=== PATIENT | male | born 2000 ===

== ENCOUNTER 2021-11-20 21:25 | Emergency (ER) | payer SELFPAY ==
[2021-11-20 23:33] VITALS: BP 134/79
== END 2021-11-21 00:31 | disposition left against medical advice (07) ==
LOC: ED 21:25
DX: T78.40XA Allergy, unspecified, initial encounter (principal); Z53.21 Procedure and treatment not carried out due to patient leaving prior to being seen by health care provider; X58.XXXA Exposure to other specified factors, initial encounter

== ENCOUNTER 2021-11-21 11:20 | Emergency (ER) | payer SELFPAY | END 2021-11-21 13:30 | disposition left against medical advice (07) | LOC: ED 11:20 | DX: R21 Rash and other nonspecific skin eruption (principal); Z53.21 Procedure and treatment not carried out due to patient leaving prior to being seen by health care provider ==